=== PATIENT | male | born 1970 | race Two or more races ===

== ENCOUNTER 2021-10-25 08:40 | Day surgery (SDC) | payer OTHER ==
[~2021-10-25 08:40] MED LIST: Lactated Ringers 1,000 ML IV SCH
[2021-10-25] MEDS ORDERED: Ondansetron 4 MG/2 ML SDV ONE (08:47)
[2021-10-25] MEDS ORDERED: Propofol 200 MG/20 ML SDV ONE (08:48)
[2021-10-25] MEDS ORDERED: fentaNYL 100 MCG/2 ML SDV ONE (08:48)
== END 2021-10-25 11:12 | disposition home or self-care (01) ==
LOC: MW.SDS 08:40
PROVIDERS: ATTEND Surgery
DX: K92.1 Melena (principal); K64.8 Other hemorrhoids; E11.9 Type 2 diabetes mellitus without complications; E66.9 Obesity, unspecified; N52.9 Male erectile dysfunction, unspecified; Z79.899 Other long term (current) drug therapy; Z90.49 Acquired absence of other specified parts of digestive tract; Z98.890 Other specified postprocedural states
CPT/HCPCS: 45378; J2405; J2704; J3010; J7120; 00812

== ENCOUNTER 2022-02-19 09:19 | Emergency (ER) | payer OTHER ==
[2022-02-19 11:41] LABS: CARBON DIOXIDE,CO2 26.5 mmol/L (21.0-32.0); POTASSIUM,K 4.5 mmol/L (3.5-5.1)
== END 2022-02-19 11:46 | disposition home or self-care (01) ==
LOC: MW.ED 09:19
DX: K62.5 Hemorrhage of anus and rectum (principal); K64.8 Other hemorrhoids; E66.9 Obesity, unspecified; Z68.34 Body mass index [BMI] 34.0-34.9, adult; Z90.49 Acquired absence of other specified parts of digestive tract
CPT/HCPCS: 36415; 80053; 85025; 99284